=== PATIENT | female | born 1990 | race Caucasian/White ===

== ENCOUNTER 2018-12-06 02:41 | Inpatient (IN) | payer OTHER ==
[~2018-12-06] VITALS: Ht 152.4 cm; Wt 100.9 kg
[2018-12-06 02:45] VITALS: Ht 152.4 cm; Wt 100.9 kg
[2018-12-06 03:55] LABS: BASOPHIL % 0.6 % (0-2); PLATELET COUNT 215 x10^3mcL (130-400); RED CELL DISTRIBUTION WIDTH 14.5 % (11.5-14.5)
[2018-12-06 04:04] LABS: ALKALINE PHOSPHATASE 110 U/L (46-116); ALT/SGPT 79 U/L (14-59); AST/SGOT 110 U/L (15-37); BILIRUBIN TOTAL 1.43 mg/dL (0.20-1.00); CALCIUM 8.4 mg/dL (8.5-10.1); CARBON DIOXIDE 27.1 mmol/L (21-32); CHLORIDE SERUM 102 mmol/L (98-107); CREATININE SERUM 0.9 mg/dL (0.6-1.0); GFR1 > 60 mL/min; GLUCOSE SERUM 125 mg/dL (74-106); LIPASE 65 IU/L (73-393); TOTAL PROTEIN, SERUM 7.1 g/dL (6.4-8.2)
[2018-12-06 04:16] LABS: ALBUMIN 3.3 g/dL (3.4-5.0); SODIUM SERUM 136 mmol/L (136-145)
[2018-12-06 04:18] LABS: POTASSIUM SERUM 2.8 mmol/L (3.5-5.1)
[2018-12-06 10:00] VITALS: BP 102/70
[2018-12-06 10:51] LABS: CALCIUM 7.9 mg/dL (8.5-10.1); CARBON DIOXIDE 26.7 mmol/L (21-32); CHLORIDE SERUM 104 mmol/L (98-107); CREATININE SERUM 0.7 mg/dL (0.6-1.0); GFR1 > 60 mL/min; GLUCOSE SERUM 124 mg/dL (74-106); POTASSIUM SERUM 3.2 mmol/L (3.5-5.1); SODIUM SERUM 138 mmol/L (136-145)
[2018-12-06 12:18] VITALS: BP 131/80
[2018-12-06 12:56] VITALS: BP 114/74
[2018-12-06 16:00] VITALS: BP 102/70
[2018-12-06 20:01] VITALS: BP 106/68
[2018-12-07 05:59] VITALS: BP 101/70
[2018-12-07 06:31] LABS: BASOPHIL % 0.2 % (0-2); PLATELET COUNT 196 x10^3mcL (130-400)
[2018-12-07 06:43] LABS: ALKALINE PHOSPHATASE 100 U/L (46-116); ALT/SGPT 75 U/L (14-59); AST/SGOT 29 U/L (15-37); BILIRUBIN TOTAL 0.9 mg/dL (0.20-1.00); CALCIUM 8.1 mg/dL (8.5-10.1); CARBON DIOXIDE 24.7 mmol/L (21-32); CHLORIDE SERUM 104 mmol/L (98-107); CREATININE SERUM 0.6 mg/dL (0.6-1.0); GFR1 > 60 mL/min; GLUCOSE SERUM 109 mg/dL (74-106); LIPASE 57 IU/L (73-393); POTASSIUM SERUM 3.8 mmol/L (3.5-5.1); SODIUM SERUM 138 mmol/L (136-145)
[2018-12-07 06:54] LABS: ALBUMIN 2.6 g/dL (3.4-5.0)
[2018-12-07 07:09] LABS: RED CELL DISTRIBUTION WIDTH 14.6 % (11.5-14.5)
[2018-12-07 08:00] VITALS: BP 138/85
[2018-12-07 11:34] VITALS: BP 118/75
[2018-12-07 17:50] VITALS: BP 107/77
[2018-12-07 20:39] VITALS: BP 108/77
[2018-12-08 06:02] VITALS: BP 109/64
[2018-12-08 09:21] VITALS: BP 103/65
[2018-12-08 12:43] VITALS: BP 98/61
[2018-12-08 13:36] LABS: BASOPHIL % 0.5 % (0-2); PLATELET COUNT 175 x10^3mcL (130-400)
[2018-12-08 13:38] LABS: RED CELL DISTRIBUTION WIDTH 14.6 % (11.5-14.5)
[2018-12-08 15:32] LABS: ALKALINE PHOSPHATASE 82 U/L (46-116); ALT/SGPT 86 U/L (14-59); AST/SGOT 56 U/L (15-37); BILIRUBIN TOTAL 0.4 mg/dL (0.20-1.00); CALCIUM 7.8 mg/dL (8.5-10.1); CHLORIDE SERUM 104 mmol/L (98-107); CREATININE SERUM 0.6 mg/dL (0.6-1.0); GFR1 > 60 mL/min; GLUCOSE SERUM 87 mg/dL (74-106); LIPASE 47 IU/L (73-393); POTASSIUM SERUM 3.2 mmol/L (3.5-5.1); SODIUM SERUM 139 mmol/L (136-145); TOTAL PROTEIN, SERUM 5.9 g/dL (6.4-8.2)
== END 2018-12-08 14:47 | disposition left against medical advice (07) | DRG 263 ==
LOC: ED 02:41 → EDBD 02:41 → DU 06:13
PROVIDERS: Anesthesiology; Emergency Medicine; Surgery; ADMIT Internal Medicine
PROC: BF101ZZ Fluoroscopy of Bile Ducts using Low Osmolar Contrast (ICD-10-PCS; 2018-12-07)
PROC: 0FT44ZZ Resection of Gallbladder, Percutaneous Endoscopic Approach (ICD-10-PCS; principal; 2018-12-07 08:30)
DX: K80.62 Calculus of gallbladder and bile duct with acute cholecystitis without obstruction (principal); N17.9 Acute kidney failure, unspecified; E87.6 Hypokalemia; Z53.21 Procedure and treatment not carried out due to patient leaving prior to being seen by health care provider; R74.0 Nonspecific elevation of levels of transaminase and lactic acid dehydrogenase [LDH]; Z68.36 Body mass index [BMI] 36.0-36.9, adult; Z88.8 Allergy status to other drugs, medicaments and biological substances
CPT/HCPCS: C1887; J0295; J0694; J1170; J1885; J2060; J2250; J2405; J2543; J3010; J3480; J3490; J7030; Q0092; Q9967